=== PATIENT | female | born 1945 | race Caucasian/White ===

== ENCOUNTER 2023-11-28 12:13 | Inpatient (IN) ==
[2023-11-28 12:57] LABS: Basophils # (Auto) 0.04 K/mcL (0.00-0.30); Basophils % (Auto) 0.7 % (0.0-2.0); Eosinophils # (Auto) 0.27 K/mcL (0.00-0.70); Eosinophils % (Auto) 4.4 % (0.0-7.0); Hemoglobin 13.9 g/dL (11.2-15.7); Lymphocytes # (Auto) 2.11 K/mcL (1.50-4.80); Lymphocytes % (Auto) 34.6 % (15.5-49.0); Mean Cell Volume 95.3 fL (80.0-100.0); Mean Corpuscular HGB Conc 32.3 g/dL (31.0-36.0); Mean Platelet Volume 10.6 fL (8.8-12.5); Monocytes # (Auto) 0.51 K/mcL (0.10-0.90); Monocytes % (Auto) 8.4 % (1.0-12.0); Neutrophils % (Auto) 51.7 % (38.0-78.0); Platelet Count 264 K/mcL (140-440); RBC 4.51 M/mcL (3.59-5.38); Red Cell Distribution Width 13.4 % (11.5-14.5); WBC 6.1 K/mcL (4.5-11.0)
[2023-11-28 13:15] LABS: ALT/SGPT < 5 U/L (<40); AST/SGOT 20 U/L (<32); Albumin 4.5 gm/dL (3.2-5.2); Albumin/Globulin Ratio 1.5 (1.0-2.3); Alkaline Phosphatase 69 U/L (39-117); Bilirubin,Total 0.4 mg/dL (0.1-1.0); Blood Urea Nitrogen 20 mg/dL (8-23); Calcium 9.6 mg/dL (8.6-10.4); Carbon Dioxide 27 mmol/L (22-30); Chloride 100 mmol/L (96-108); Globulin 3.1 gm/dL (2.2-3.7); Glomerular Filtration Rate 87; Glucose 108 mg/dL (70-105)
[2023-11-28] MEDS ORDERED: ACETAMINOPHEN 325 MG TABLET PO PRN (16:30)
[2023-11-28] MEDS ORDERED: oxyCODONE IR 5 MG TABLET PO PRN (16:30)
[2023-11-28] MEDS ORDERED: ONDANSETRON 4 MG/2 ML VIAL IV PRN (16:30)
[2023-11-28] MEDS ORDERED: morphine 4 MG/ML VIAL IV PRN (16:30)
[2023-11-28] MEDS ORDERED: IPRATROPIUM/ALBUTEROL 3 ML AMPUL.NEB NEB PRN (16:30)
[2023-11-28] MEDS: DOCUSATE SODIUM 100 MG CAPSULE PO SCH (20:59)
[2023-11-28] MEDS: rOPINIRole 1 MG TABLET PO SCH (21:00)
[2023-11-28] MEDS: CARBIDOPA/LEVODOPA 25/100 TABLET PO SCH (21:00)
[2023-11-28] MEDS: SENNOSIDES 1 TABLET PO SCH (21:00)
[2023-11-28] MEDS: 0.9 % SODIUM CHLORIDE 10 ML SYRINGE IV SCH (21:01)
[2023-11-29 07:29] LABS: Thyroid Stimulating Hormone 0.83 uIU/mL (0.27-5.01)
[2023-11-29] MEDS: OMEPRAZOLE 20 MG CAPSULE PO SCH (08:25)
[2023-11-29] MEDS ORDERED: DIGESTIVE ENZYMES PO SCH (09:00)
[2023-11-29] MEDS ORDERED: LINACLOTIDE 290 MCG PO SCH (09:00)
[2023-11-29] MEDS ORDERED: IBANDRONATE 150 MG PO SCH (09:00)
== END 2023-11-29 15:50 | disposition home or self-care (01) | DRG 312 ==
LOC: ED 12:13 → MEDSUR 16:17
PROVIDERS: ADMIT Internal Medicine; ATTEND Internal Medicine